=== PATIENT | female | born 1985 | race Caucasian/White ===

== ENCOUNTER 2017-05-04 09:44 | Outpatient (CLI) | payer MEDICAID ==
[~2017-05-04] VITALS: Ht 160 cm; Wt 62.7 kg
[~2017-05-04 09:44] MED LIST: AZO-CRANBERRY450 MG PO; BACTRIM DS 8001 TAB PO; CIPRO 500MG TA500 MG PO; KENALOG0.1% TP; MEDROL 4MG. DOSE4 MG PO; NOMEDS; PRENATAL1 TA1 PO; SILVADENE400 GM/JAR EX; TREXIMET 500 MG1 TAB PO; ULTRAM50 MG PO
[2017-05-04 10:19] VITALS: BP 89/60
== END 2017-05-04 12:35 | disposition home or self-care (01) ==
LOC: OBOUT 09:44 → OB 09:44 → OBOUT 12:35
DX: O26.92 Pregnancy related conditions, unspecified, second trimester (principal); Z3A.15 15 weeks gestation of pregnancy; E86.0 Dehydration

== ENCOUNTER 2017-07-28 03:43 | Emergency (ER) | payer MEDICAID ==
[~2017-07-28] VITALS: Ht 160 cm; Wt 67.1 kg
[2017-07-28 03:55] LABS: URINE BILIRUBIN - DIPSTICK NEGATIVE (NEG); URINE BLOOD NEGATIVE (NEG)
[2017-07-28 04:13] LABS: LYMPH # 1.4 K/mm3 (0.7-4.5); LYMPH % 10.7 % (10-50.0)
--- NOTE | 2017-07-28 04:28 | Emergency Room Report ---
History of Present Illness Time Seen by [id number] Presenting Problem in Triage Pt arrived:Walked Presenting Problem:C/O N/V/D SINCE 2339 WITH BACK PAIN AND CRAMPS. 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 N Clinical Suspician of Infection? N Mental Status: 1 - Regular (Normal Baseline) Sepsis Risk:Possible Sepsis Risk Have you (or family members/close friends) recently traveled outside the [place]? N If Yes, where/when: Have you had exposure to infectious disease within the past month? N TB? Other? 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 No Angina: No [place]: No Hypertension? No Hyperlipidemia? No CHF? No DVT? No PE? No COPD? No Asthma? No Anemia? No GERD? No Gastric ulcers? No GI Bleed? No Hernia? No Thyroid Problems? No Hypothyroidism? No CVA? No Seizures? No Diabetes? No End Stage Renal Disease? No UTI? No Stones? No BPH? No GB Disease: No Nephritic Syndrome? No Asplenia? No Hepatitis? No Sickle Cell Disease? No Migraines? Yes Cataracts? No Glaucoma? No MRSA? No HIV? No TB? No Anxiety? No Depression? No Cancer? No More? 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 Respiratory denies cough, denies shortness of breath Cardiovascular denies chest pain, denies syncope Gastrointestinal see HPI, diarrhea Genitourinary denies: dysuria, frequency, hesitancy, hematuria. Musculoskeletal denies back pain, denies joint pain, denies neck pain Skin denies rash Psychiatric/Neurological denies headache, denies seizure Physical Exam Vital Signs Vital Signs Date Time Temp Pulse Resp B/P Pulse O2 O2 Flow FiO2 Ox Delivery Rate 07/28 0512 84 16 54 98 07/28 0347 97.7 102 20 102/77 98 - WBC >12,000 or <4,000 or 10% bands? 2 or more SIRS Criteria Met? B/P: MAP:85 Creatinine >2.0? UA output<0.5ml/kg/hr for 2 hrs? Platelet count >100,000? Lactate >2.0mmol/1? INR >1.2 or PTT > than 60 sec? Evidence of Organ Dysfunction? Provider documented clinical suspician of infection? N Sepsis Criteria Count: 2 Sepsis Risk: Possible Sepsis Risk General Appearance no apparent distress Eye Exam - bilateral eye PERRL, bilateral eye EOMI Ear, Nose, Throat normal ENT inspection Neck supple Respiratory Status No: respiratory distress. 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 No Results/Orders Laboratory Tests 07/28/17 0400: Sodium 135 L, Potassium 3.5, Chloride 104, Carbon Dioxide 22, BUN 9, Creatinine 0.5 L, Estimated Creat Clear 170, Estimated GFR (MDRD) 142, Glucose 107 H, Calcium 8.3 L, Total Bilirubin 0.3, AST 9 L, ALT 8 L, Alkaline Phosphatase 76 , Total Protein 6.4, Albumin 2.8 L, Globulin 3.6 H, Albumin/Globulin Ratio 0.8 L, Amylase 44, Lipase 80, WBC 12.7 H, RBC 3.42 L, Hgb 11.0 L, Hct 32.5 L, MCV 95.2, RDW 12.6, Plt Count 276, MPV 7.8, Gran % 85.4 H, Gran # 10.8 H, Total Counted 100, Lymphocytes % 10.7, Monocytes % 2.7, Eosinophils % 1.0, Basophils % 0.1, Neutrophils 85 H, Lymphocytes (Manual) 12, Lymphocytes # 1.4, Monocytes (Manual) 2, Monocytes # 0.3, Eosinophils # 0.1, Basophils # 0.0, Atypical Lymphocytes 1, Platelet Estimate NORMAL, PUBS MCHC 33.7, MCH 32.1 H 07/28/17 0349: Urine Color YELLOW, Urine Appearance CLOUDY, Urine pH 7.0, Ur Specific [place] 1.020, Urine Protein TRACE H, Urine Ketones NEGATIVE, Urine Blood NEGATIVE, Urine Nitrate NEGATIVE, Urine Bilirubin NEGATIVE, Urine Urobilinogen 0.2, Ur Leukocyte Esterase 1+ H, Urine WBC 10-20, Ur Squamous Epith Cells 10-20, Urine Glucose NEGATIVE Current Medication Orders Sig/Edmar Start time Last Medication Dose Route Stop Time Status Admin Promethazine HCl 1 LIEN ONCE ONE 07/28 0715 AC PO 07/28 0716 Sodium Chloride 1,000 ML ONCE ONE 07/28 0515 CAN IV 07/28 0516 Sodium Chloride 1,000 ML .Q1H1M 07/28 0515 DC 07/28 IV 07/28 0615 0511 Sodium Chloride 10 ML PRN PRN 07/28 0515 AC IV 07/29 0509 Sodium Chloride 1,000 ML .STK-MED ONE 07/28 0503 DC IV Sodium Chloride 10 ML PRN PRN 07/28 0400 AC IV 07/29 0357 Sodium Chloride 1,000 ML .Q1H1M 07/28 0400 DC 07/28 IV 07/28 0500 0400 Sodium Chloride 10 ML PRN PRN 07/28 0400 AC IV 07/29 0357 Sodium Chloride 1,000 ML .STK-MED ONE 07/28 035 DC IV Orders Procedure Date/time Status DIFFERENTIAL-WBC 07/28 040 Complete IV SALINE LOCK 07/28 357 Active LIPASE 07/28 357 Complete CBC WITH AUTO DIFF 07/28 357 Complete CHEM 12 PROFILE 07/28 357 Complete AMYLASE 07/28 357 Complete URINALYSIS/COMPLETE 11/11 0350 Complete CULTURE, URINE 07/28 0349 Active Departure Departure Time of Disposition 0705 Disposition DC Home or Self Care(routine) Clinical Impression Primary Impression: Gastroenteritis Secondary Impressions: Qualifiers: Weeks of gestation: 23 weeks Qualified Code: Z3A.23 - 23 weeks gestation of Condition STABLE Referrals Jose Guadalupe PARSONS,Roby Jamil Patient Instructions DI for Vomiting -- Adult Additional Instructions fluids and see pcp for follow up Discharge Counseling Counseled pt/family regarding diagnosis, test results, follow up needs ED Critical Care Critical Care No at 0708
--- OUTSIDE RECORDS SUMMARY | 2017-07-28 04:57 | External Medical Summary Rpt | CCD ---
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 Phone PATRICIA MICHEL MD, Unavailable Unavailable PATRICIA Ahn III, MD, Diego Nicole III, MD Purpose Continuity of Care Document - 09-07-2011 through 2016 Problems Code Diagnosis DOS Provider Status 845.00 845.00 08-19-2013 [facility] 692.76 692.76 03-03-2013 [place] [facility] [address] R11.10 VOMITING, UNSPECIFIED R51 HEADACHE Z33.1 STATE, INCIDENTAL Z34.90 ENCNTR FOR SUPRVSN OF NORMAL , UNSP, UNSP TRIMESTER Allergies, Adverse Reactions, Alerts Type Allergy to substance Adverse Reaction to Substance Substance Reaction Severity NO KNOWN ALLERGIES Unknown Unknown Vital Signs 08-19-2013 09:42 Name Value Interpretat Reference Comment ion Range Body 98.2 [degF] Temperature BP 67 mm[Hg] Diastolic BP Systolic 114 mm[Hg] Heart 88 /min Rate/Pulse O2% 98 % Respiratory 20 /min Rate 03-03-2013 11:10 Name Value Interpretat Reference Comment ion Range Body 99.1 [degF] Temperature BP 73 mm[Hg] Diastolic BP Systolic 130 mm[Hg] Heart 92 /min Rate/Pulse O2% 100 % Respiratory 18 /min Rate 03-03-2013 11:06 Name Value Interpretat Reference Comment ion Range Body 99.1 [degF] Temperature BP 73 mm[Hg] Diastolic BP Systolic 130 mm[Hg] Heart 92 /min Rate/Pulse O2% 100 % Respiratory 18 /min Rate Results Labs Lab Lab Date Result Refere Interp Status Commen Order Detail nces retati t Range on Urinalysis dipstick W Reflex Microscopic panel in Urine (11-11-2017 03:49) Epithel 07-28- 10-20 0#/hp complet ial 017 f - ed cells.s 03:49 5#/hp quamous f [Presen ce] in Urine sedimen t by Microsc opy high power field Leukocy 07-28- 10-20 O complet serge 017 wbc/hpf ed [#/volu 03:49 me] in Urine Urinalysis dipstick W Reflex Microscopic panel in Urine (07-28-2017 03:49) Appeara CLOUDY CLEAR complet nce of 017 ed Urine 03:49 Bilirub NEGATIV NEG complet in 017 E ed [Presen 03:49 ce] in Urine by Test strip Erythro NEGATIV NEG complet cytes 017 E ed [Presen 03:49 ce] in Urine Color YELLOW YELLOW complet of 017 ed Urine 03:49 Ketones NEGATIV NEG complet 017 E ed [Presen 03:49 ce] in Urine by Automat ed test strip Mucus 1+ NEG Abnorma complet [Presen 017 l ed ce] in 03:49 Urine sedimen t by Light microsc opy Nitrite NEGATIV NEG complet 017 E ed [Presen 03:49 ce] in Urine by Test strip Urobili 07-28-2 0.2 NEG complet nogen 017 ed [Presen 03:49 ce] in Urine by Test strip Blood group antibody screen [Presence] in Serum or Plasma (02-19-2017 10:25) Blood 02-19- NEGATIV NEGATIV complet group 017 E E ed antibod 10:25 y screen [Presen ce] in Serum or Plasma Rh [Type] in Blood (02-19-2017 10:25) Rh -05-2 POSITIV complet [Type] 017 E ed in 10:25 Blood ABO group [Type] in Blood (02-19-2017 10:25) ABO --2 A complet group 017 ed [Type] 10:25 in Blood Reagin Ab [Presence] in Unspecified specimen by VDRL (09-07-2011 15:51) Reagin NON-SERENA complet Ab 011 CTIVE ed [Presen 15:51 ce] in Unspeci fied specime n by VDRL CHLAMYDIA AND GONORRHEA TESTING (09-07-2011 15:51) Chlamyd 12--2 NEGATIV complet ia 011 E ed trachom 15:51 atis rRNA [Presen ce] in Unspeci fied specime n by Probe & target amplifi cation method Neisser 12-22-2 NEGATIV complet ia 011 E ed gonorrh 15:51 oeae rRNA [Presen ce] in Unspeci fied specime n by Probe & target amplifi cation method CHLAMYDIA AND GONORRHEA TESTING (09-07-2011 15:51) COLLECT 12--2 NA complet OR 011 ed 15:51 ETHNICI 12-22-2 WHITE, complet TY 011 NON-HIS ed 15:51 PANIC KIT --2 4 complet EXPIRAT 011 ed ION 15:51 DATE SYMPTOM --2 NO complet S 011 ed 15:51 REASON 12--2 VOLUNTE complet FOR 011 ER/MEDI ed REQUEST 15:51 SUE PROBLEM SPECIME --2 URINE complet N 011 ed SOURCE 15:51 PREGNAN -22-2 NO complet T 011 ed 15:51 CHART --2 NA complet NUMBER 011 ed 15:51 Chlamyd 12-22-2 Pending complet ia 011 ed trachom 15:51 atis rRNA [Presen ce] in Unspeci fied specime n by Probe & target amplifi cation method Neisser 09-07-2 Pending complet ia 011 ed gonorrh 15:51 oeae rRNA [Presen ce] in Unspeci fied specime n by Probe & target amplifi cation method Reagin Ab [Presence] in Unspecified specimen by VDRL (09-07-2011 15:51) COLLECT 12-22-2 NA complet OR 011 ed 15:51 ETHNICI 12-22-2 WHITE complet TY 011 ed 15:51 PURPOSE 12-22-2 DIAGNOS complet OF 011 TIC ed EXAM 15:51 SPECIME 12-22-2 BLOOD complet N 011 ed SOURCE 15:51 CHART 09-07-2 NA complet NUMBER 011 ed 15:51 Reagin -22-2 Pending complet Ab 011 ed [Presen 15:51 ce] in Unspeci fied specime n by VDRL Encounters Encounter Start End Date Code Location Performer Type Date Emergency [place] MICHEL MD (ER) 3 08:55 3 09:43 [facility] [place] Nicole (ER) 3 10:35 3 11:13 [facility] Diego Kern
--- OUTSIDE RECORDS SUMMARY | 2017-07-28 04:57 | External Medical Summary Rpt | CCD ---
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
--- OUTSIDE RECORDS SUMMARY | 2017-07-28 04:58 | External Medical Summary Rpt | CCD ---
Author Author [employer] Organization [employer] Address Unknown Phone Unavailable Purpose Continuity of Care Document - through 2016
--- OUTSIDE RECORDS SUMMARY | 2017-07-28 04:58 | External Medical Summary Rpt | CCD ---
Author Author , LINDSEY PORTILLO Address Unknown Phone .[employer] Immunization Name Date Rout CVX Reac Dose Comm Prov Is Faci e tion ent ider Refu lity Give sed n Tdap 11-1 Intr 115 0.5 Hist WALM No WALM , 4-20 amus mL oric ART5 ART5 Adso 16 cula [address] 91 91 rbed r Info rmat ion - Sour ce Unsp ecif ied
--- OUTSIDE RECORDS SUMMARY | 2017-07-28 04:58 | External Medical Summary Rpt | CCD ---
Author Author , LINDSEY PORTILLO Address Unknown Phone [email or web address] Immunization Name Date Rout CVX Reac Dose Comm Prov Is Faci e tion ent ider Refu lity Give sed n Tdap 11-1 Intr 115 0.5 Hist WALM No WALM , 4-20 amus mL oric ART5 ART5 Adso 16 cula [address] 91 91 rbed r Info rmat ion - Sour ce Unsp ecif ied
--- OUTSIDE RECORDS SUMMARY | 2017-07-28 04:59 | External Medical Summary Rpt ---
Author Author LINDSEY Bolanos, [employer] Organization [employer] Address Unknown Phone Unavailable Results Urinalysis dipstick W Reflex Microscopic panel in Urine Observa Value Referen Units Interpr Notes Date tion ce etation Range Appeara CLOUDY CLEAR No No No Jul 28 nce of informa informa informa 2017 Urine tion in tion in tion in 3:49 AM source source source data data data Bilirub NEGATIV NEG No No No Jul 28 in E informa informa informa 2016 [Presen tion in tion in tion in 3:49 AM ce] in source source source Urine data data data by Test strip Erythro NEGATIV NEG No No No Jul 28 cytes E informa informa informa 2016 [Presen tion in tion in tion in 3:49 AM ce] in source source source Urine data data data Color YELLOW YELLOW No No No Jul 28 of informa informa informa 2016 Urine tion in tion in tion in 3:49 AM source source source data data data Glucose NEG No No No Jul 28 [Mass/vol informati informati informati 2017 3:49 ume] in on in on in on in AM Urine by source source source Test data data data strip Ketones NEGATIV NEG mg/dL No No Jul 28 E informa informa 2016 [Presen tion in tion in 3:49 AM ce] in source source Urine data data by Automat ed test strip Mucus 1+ NEG No Abnorma No Jul 28 [Presen informa l informa 2016 ce] in tion in tion in 3:49 AM Urine source source sedimen data data t by Light microsc opy Nitrite NEGATIV NEG No No No Jul 28 E informa informa informa 2016 [Presen tion in tion in tion in 3:49 AM ce] in source source source Urine data data data by Test strip pH of 5.0 - 8.5 No Normal No Jul 28 Urine informati informati 2017 3:49 on in on in AM source source data data Protein NEG mg/dL High No Jul 28 [Mass/vol informati 2017 3:49 ume] in on in AM Urine by source Automated data test strip Specific 1.005 - No Normal No Jul 28 gravity 1.030 informati informati 2017 3:49 of Urine on in on in AM source source data data Epithel 10-20 0 - 5 #/hpf No No Jul 28 ial informa informa 2017 cells.s tion in tion in 3:49 AM quamous source source data data [Presen ce] in Urine sedimen t by Microsc opy high power field Urobili 0.2 NEG E.U./dL No No Jul 28 nogen informa informa 2016 [Presen tion in tion in 3:49 AM ce] in source source Urine data data by Test strip Leukocy [10 O wbc/hpf No No Jul 28 serge wbc/hpf informa informa 2016 [#/volu ; 20 tion in tion in 3:49 AM me] in wbc/hpf source source Urine ] data data Urinalysis dipstick W Reflex Microscopic panel in Urine Observa Value Referen Units Interpr Notes Date tion ce etation Range Appeara CLOUDY CLEAR No No No Jul 28 nce of informa informa informa 2017 Urine tion in tion in tion in 3:49 AM source source source data data data Bilirub NEGATIV NEG No No No Jul 28 in E informa informa informa 2016 [Presen tion in tion in tion in 3:49 AM ce] in source source source Urine data data data by Test strip Erythro NEGATIV NEG No No No Jul 28 cytes E informa informa informa 2016 [Presen tion in tion in tion in 3:49 AM ce] in source source source Urine data data data Color YELLOW YELLOW No No No Jul 28 of informa informa informa 2017 Urine tion in tion in tion in 3:49 AM source source source data data data Glucose NEG No No No Jul 28 [Mass/vol informati informati informati 2016 3:49 ume] in on in on in on in AM Urine by source source source Test data data data strip Ketones NEGATIV NEG mg/dL No No Jul 28 E informa informa 2016 [Presen tion in tion in 3:49 AM ce] in source source Urine data data by Automat ed test strip Mucus 1+ NEG No Abnorma No Jul 28 [Presen informa l informa 2016 ce] in tion in tion in 3:49 AM Urine source source sedimen data data t by Light microsc opy Nitrite NEGATIV NEG No No No Jul 28 E informa informa informa 2016 [Presen tion in tion in tion in 3:49 AM ce] in source source source Urine data data data by Test strip pH of 5.0 - 8.5 No Normal No Jul 28 Urine informati informati 2016 3:49 on in on in AM source source data data Protein NEG mg/dL High No Jul 28 [Mass/vol informati 2016 3:49 ume] in on in AM Urine by source Automated data test strip Specific 1.005 - No Normal No Jul 28 gravity 1.030 informati informati 2016 3:49 of Urine on in on in AM source source data data Urobili 0.2 NEG E.U./dL No No Jul 28 nogen informa informa 2016 [Presen tion in tion in 3:49 AM ce] in source source Urine data data by Test strip HBsAg Screen Observa Value Referen Units Interpr Notes Date tion ce etation Range Hepatit Negativ Negativ No No Perform Feb 19 is B e e informa informa ed at: 2017 virus tion in tion in CB - 10:25 surface source source [facility] AM Ag data data [Pres ce] in 370 Serum Araiza by [facility], [facility] [id number] Directo r: Sean Ayala ti PhD, Phone: [phone] Reagin Ab [Titer] in Serum by RPR Observa Value Referen Units Interpr Notes Date tion ce etation Range Reagin Ab NonRea<1: No No No Feb 19 [Titer] 1 informati informati informati 2016 in Serum on in on in on in 10:25 AM by RPR source source source data data data Rubella virus IgG Ab [Units/volume] in Serum by Immunoassay Observa Value Referen Units Interpr Notes Date tion ce etation Range Rubella Immune index No Non-immun Chad virus IgG >0.99 informati e 2017 Ab on in <0.90Equi 10:25 AM [Units/vo source vocal lume] in data 0.90 - Serum by 0.99Immun Immunoass e ay >0.99Perf ormed at: [facility] [place] [id number] [address] [place], [place] [id number] Jack Setter: Sean Medel PhD, Phone: [phone] Blood group antibody screen [Presence] in Serum or Plasma Observa Value Referen Units Interpr Notes Date tion ce etation Range Blood NEGATIV NEGATIV No No No Chad 5 group E E informa informa informa 2017 antibod tion in tion in tion in 10:25 y source source source AM screen data data data [Presen ce] in Serum or Plasma Rh [Type] in Blood Observa Value Referen Units Interpr Notes Date ti ce etation Range Rh POSITIV No No No No Chad 5 [Type] E informa informa informa informa 2016 in tion in tion in tion in tion in 10:25 Blood source source source source AM data data data data ABO group [Type] in Blood Observa Value Referen Units Interpr Notes Date ti ce etation Range ABO A No No No No Chad 5 group informa informa informa informa 2017 [Type] tion in tion in tion in tion in 10:25 in source source source source AM Blood data data data data CBC W Auto Differential panel in Blood Observa Value Referen Units Interpr Notes Date tion ce etation Range Basophils 0 - 0.2 K/MM3 Normal No Feb 19 informati 2016 [#/volume on in 10:25 AM ] in source Blood by data Automated count Basophils 0.1 - 2.0 % Normal No Feb 5 /100 informati 2016 leukocyte on in 10:25 AM s in source Blood by data Automated count Eosinophi 0.0 - 0.4 K/mm3 Normal No Feb 19 ls informati 2016 [#/volume on in 10:25 AM ] in source Blood by data Automated count Eosinophi 0.1 - % Normal No Feb 19 ls/100 12.0 informati 2016 leukocyte on in 10:25 AM s in source Blood by data Automated count Granulocy 1.8 - 7.8 K/mm3 Normal No Feb 19 serge informati 2016 [#/volume on in 10:25 AM ] in source Blood by data Automated count Granulocy 37.0 - % Normal No Feb 19 serge/100 80.0 inform2016 leukocyte on in 10:25 AM s in source Blood by data Automated count Hematocri 37.0 - % Normal No Feb 19 t [Volume 47.0 informati 2016 on in 10:25 AM Fraction] source of Blood data Hemoglobi 12.2 - g/dL Normal No Feb 19 n 16.2 informati 2016 [Mass/vol on in 10:25 AM ume] in source Blood data Lymphocyt 0.7 - 4.5 K/mm3 Normal No Feb 19 es inform2016 [#/volume on in 10:25 AM ] in source Unspecifi data ed specimen by Automated count Lymphocyt 10 - 50.0 % Normal No Feb 19 es inform2016 [#/volume on in 10:25 AM ] in source Unspecifi data ed specimen by Automated count Erythrocy 27 - 31.2 pg High No Feb 19 te mean 2016 corpuscul on in 10:25 AM ar source hemoglobi data n [Entitic mass] Erythrocy 31.8 - g/dl Normal No Feb 19 te mean 35.4 inform2016 corpuscul on in 10:25 AM ar source hemoglobi data n concentra tion [Mass/vol ume] by Automated count Erythrocy 82.2 - fl Normal No Feb 19 te mean 97.8 inform2016 corpuscul on in 10:25 AM ar volume source [Entitic data volume] by Automated count Monocytes 0.1 - 1.0 K/mm3 Normal No Feb 192016 [#/volume on in 10:25 AM ] in source Blood by data Automated count Monocytes 1.7 - 9.3 % Normal No Feb 5 /100 inform2016 leukocyte on in 10:25 AM s in source Blood by data Automated count Platelet 7.4 - fl Low No Feb 19 mean 10.4 inform2016 volume on in 10:25 AM [Entitic source volume] data in Blood by Automated count Platelets 142 - 424 K/mm3 Normal No Feb 19 inform2016 [#/volume on in 10:25 AM ] in source Blood data Erythrocy 4.2 - 5.4 M/mm3 Normal No Feb 19 serge informati 2016 [#/volume on in 10:25 AM ] in source Amniotic data fluid Erythrocy 11.5 - % Normal No Feb 19 te 17.5 informati 2016 distribut on in 10:25 AM ion width source [Entitic data volume] by Automated count Leukocyte 4.8 - K/MM3 Normal No Feb 19 s 10.8 informati 2016 [#/volume on in 10:25 AM ] in source Blood data Reagin Ab [Presence] in Unspecified specimen by VDRL Observa Value Referen Units Interpr Notes Date tion ce etation Range COLLECT NA No No No No Sep 07 OR informa informa informa informa 2011 tion in tion in tion in tion in 3:51 PM source source source source data data data data ETHNICI WHITE No No No No Sep 07 TY informa informa informa informa 2011 tion in tion in tion in tion in 3:51 PM source source source source data data data data PURPOSE DIAGNOS No No No No Sep 07 OF TIC informa informa informa informa 2011 EXAM tion in tion in tion in tion in 3:51 PM source source source source data data data data SPECIME BLOOD No No No No Sep 07 N informa informa informa informa 2011 SOURCE tion in tion in tion in tion in 3:51 PM source source source source data data data data CHART NA No No No No Sep 07 NUMBER informa informa informa informa 2011 tion in tion in tion in tion in 3:51 PM source source source source data data data data Reagin NON-SERENA No No No METHOD Sep 07 Ab CTIVE informa informa informa OF 2010 [Presen tion in tion in tion in ANALYSI 3:51 PM ce] in source source source S: Unspeci data data data VDRLNOR fied MAL specime RANGE: n by NON VDRL REACTIV E\.br\T his report contain s patient informa tion that must be protect ed in accorda nce with the Health Insuran ce Portabi lity and Account ability Act. CHLAMYDIA AND GONORRHEA TESTING Observa Value Referen Units Interpr Notes Date tion ce etation Range COLLECT NA No No No No Sep 07 OR informa informa informa informa 2010 tion in tion in tion in tion in 3:51 PM source source source source data data data data ETHNICI WHITE, No No No No Sep 07 TY NON-HIS informa informa informa informa 2011 PANIC tion in tion in tion in tion in 3:51 PM source source source source data data data data KIT 4-30-12 No No No No Sep 07 EXPIRAT informa informa informa informa 2011 ION tion in tion in tion in tion in 3:51 PM DATE source source source source data data data data SYMPTOM NO No No No No Sep 07 S informa informa informa informa 2011 tion in tion in tion in tion in 3:51 PM source source source source data data data data REASON VOLUNTE No No No No Sep 07 FOR ER/MEDI informa informa informa informa 2011 REQUEST SUE tion in tion in tion in tion in 3:51 PM PROBLEM source source source source data data data data SPECIME URINE No No No No Sep 07 N informa informa informa informa 2011 SOURCE tion in tion in tion in tion in 3:51 PM source source source source data data data data PREGNAN NO No No No No Sep 07 T informa informa informa informa 2011 tion in tion in tion in tion in 3:51 PM source source source source data data data data CHART NA No No No No Sep 07 NUMBER informa informa informa informa 2011 tion in tion in tion in tion in 3:51 PM source source source source data data data data Chlamyd NEGATIV No No No NEGATIV Sep 07 ia E informa informa informa E 2011 trachom tion in tion in tion in RESULT= 3:51 PM atis source source source WITHIN rRNA data data data NORMAL [Presen ce] in LIMITSP Unspeci OSITIVE fied specime RESULT= n by Probe & ABNORMA target LEQUIVO SUE amplifi RESULT= cation method INDETER MINATEU NSATISF ACTORY RESULT= INVALID Neisser NEGATIV No No No NEGATIV Sep 07 ia E informa informa informa E 2011 gonorrh tion in tion in tion in RESULT= 3:51 PM oeae source source source WITHIN rRNA data data data NORMAL [Presen ce] in LIMITSP Unspeci OSITIVE fied specime RESULT= n by Probe & ABNORMA target LEQUIVO SUE amplifi RESULT= cation method INDETER MINATEU NSATISF ACTORY RESULT= INVALID EFFECTI VE NOVEMBE R 2009: THE APTIMA COMBO 2 NUCLEIC ACIDAMP LIFICAT ION ASSAY IS NOT INTENDE D FOR THE EVALUAT ION OFSUSPE CTED SEXUAL ABUSE OR FOR OTHER MEDICO- LEGAL INDICAT IONS.FA LSE POSITIV E RESULTS ARE POSSIBL E.\.br\ This report contain s patient informa tion that must be protect ed in accorda nce with the Health Insuran ce Portabi lity and Account ability Act. CHLAMYDIA AND GONORRHEA TESTING Observa Value Referen Units Interpr Notes Date tion ce etation Range COLLECT NA No No No No Sep 07 OR informa informa informa informa 2011 tion in tion in tion in tion in 3:51 PM source source source source data data data data ETHNICI WHITE, No No No No Sep 07 TY NON-HIS informa informa informa informa 2011 PANIC tion in tion in tion in tion in 3:51 PM source source source source data data data data KIT 4-30-12 No No No No Sep 07 EXPIRAT informa informa informa informa 2011 ION tion in tion in tion in tion in 3:51 PM DATE source source source source data data data data SYMPTOM NO No No No No Sep 07 S informa informa informa informa 2011 tion in tion in tion in tion in 3:51 PM source source source source data data data data REASON VOLUNTE No No No No Sep 07 FOR ER/MEDI informa informa informa informa 2011 REQUEST SUE tion in tion in tion in tion in 3:51 PM PROBLEM source source source source data data data data SPECIME URINE No No No No Sep 07 N informa informa informa informa 2011 SOURCE tion in tion in tion in tion in 3:51 PM source source source source data data data data PREGNAN NO No No No No Sep 07 T informa informa informa informa 2011 tion in tion in tion in tion in 3:51 PM source source source source data data data data CHART NA No No No No Sep 07 NUMBER informa informa informa informa 2011 tion in tion in tion in tion in 3:51 PM source source source source data data data data Chlamyd Pending No No No No Sep 07 ia informa informa informa informa 2011 trachom tion in tion in tion in tion in 3:51 PM atis source source source source rRNA data data data data [Presen ce] in Unspeci fied specime n by Probe & target amplifi cation method Neisser Pending No No No \.br\Sep 07 ia informa informa informa is 2011 gonorrh tion in tion in tion in report 3:51 PM oeae source source source contain rRNA data data data s [Presen patient ce] in Unspeci informa fied tion specime that n by must be Probe & target protect ed in amplifi accorda cation nce method with the Health Insuran ce Portabi lity and Account ability Act. Reagin Ab [Presence] in Unspecified specimen by VDRL Observa Value Referen Units Interpr Notes Date tion ce etation Range COLLECT NA No No No No Sep 07 OR informa informa informa informa 2011 tion in tion in tion in tion in 3:51 PM source source source source data data data data ETHNICI WHITE No No No No Sep 07 TY informa informa informa informa 2011 tion in tion in tion in tion in 3:51 PM source source source source data data data data PURPOSE DIAGNOS No No No No Sep 07 OF TIC informa informa informa informa 2011 EXAM tion in tion in tion in tion in 3:51 PM source source source source data data data data SPECIME BLOOD No No No No Sep 07 N informa informa informa informa 2011 SOURCE tion in tion in tion in tion in 3:51 PM source source source source data data data data CHART NA No No No No Sep 07 NUMBER informa informa informa informa 2011 tion in tion in tion in tion in 3:51 PM source source source source data data data data Reagin Pending No No No \.br\Sep 07 Ab informa informa informa is 2010 [Presen tion in tion in tion in report 3:51 PM ce] in source source source contain Unspeci data data data s fied patient specime n by informa VDRL tion that must be protect ed in accorda nce with the Health Insuran ce Portabi lity and Account ability Act.
--- OUTSIDE RECORDS SUMMARY | 2017-07-28 04:59 | External Medical Summary Rpt ---
[...] [Pres ce] in 370 Serum Araiza by [facility], [facility] [id number] Directo r: Sean Ayala ti PhD, Phone: [phone] Reagin Ab [Titer] in Serum by [...] 0.99Immun Immunoass e ay >0.99Perf ormed at: [facility] [address] [address] [place], [place] [id number] Service Porter: Sean Medel PhD, Phone: [phone] Blood group antibody screen [Presence] in [...]
[2017-07-28 06:08] LABS: NEUTROPHILS 85 % (42-76)
[2017-07-28 07:12] VITALS: BP 89/54
== END 2017-07-28 07:13 | disposition home or self-care (01) ==
LOC: ER 03:43
PROVIDERS: Emergency Medicine
DX: O99.612 Diseases of the digestive system complicating pregnancy, second trimester (principal); K52.9 Noninfective gastroenteritis and colitis, unspecified; O99.332 Smoking (tobacco) complicating pregnancy, second trimester; F17.210 Nicotine dependence, cigarettes, uncomplicated; Z3A.27 27 weeks gestation of pregnancy

== ENCOUNTER 2017-08-11 09:51 | Outpatient (CLI) | payer MEDICAID ==
[~2017-08-11] VITALS: Ht 160 cm; Wt 67.6 kg
[2017-08-11 09:59] VITALS: BP 118/68
[2017-08-12] MEDS ORDERED: IRON TABLETS325 MG PO (10:36)
== END 2017-08-11 10:15 | disposition home or self-care (01) ==
LOC: OBOUT 09:51 → OB 09:52 → OBOUT 10:15
DX: O26.93 Pregnancy related conditions, unspecified, third trimester (principal); Z3A.29 29 weeks gestation of pregnancy; Z34.80 Encounter for supervision of other normal pregnancy, unspecified trimester

== ENCOUNTER 2017-08-12 10:05 | Outpatient (CLI) | payer MEDICAID ==
[~2017-08-12] VITALS: Ht 160 cm; Wt 67.6 kg
[2017-08-12 10:20] VITALS: BP 112/69
[2017-08-12] MEDS ORDERED: IRON TABLETS325 MG PO (10:36)
== END 2017-08-12 10:58 | disposition home or self-care (01) ==
LOC: OBOUT 10:05 → OB 10:05 → OBOUT 10:58
DX: O26.93 Pregnancy related conditions, unspecified, third trimester (principal); Z3A.29 29 weeks gestation of pregnancy; Z34.80 Encounter for supervision of other normal pregnancy, unspecified trimester